=== PATIENT | male | born 1950 | race Two or more races ===

== ENCOUNTER 2018-10-24 13:30 | Emergency (ER) | payer OTHER ==
[~2018-10-24] VITALS: Ht 177.8 cm; Wt 114.3 kg
[2018-10-24 14:02] VITALS: BP 124/73
[2018-10-24] MEDS: LIDOCAINE 1% HCL (LOCAL ANESTH.) INJ 20ML MDV IJ ONE (14:57)
[2018-10-24] MEDS: TETANUS-DIPTH-ACEL PERTUSSIS 0.5ML SYRG IM ONE (14:59)
== END 2018-10-24 15:12 | disposition home or self-care (01) ==
LOC: ER 13:30
DX: S61.412A Laceration without foreign body of left hand, initial encounter (principal); I10 Essential (primary) hypertension; W26.8XXA Contact with other sharp object(s), not elsewhere classified, initial encounter; Y93.89 Activity, other specified; Y92.89 Other specified places as the place of occurrence of the external cause; Y99.8 Other external cause status
CPT/HCPCS: 12002; 90471; 90715; 99283; J2001

== ENCOUNTER 2018-10-27 12:08 | Emergency (ER) | payer OTHER ==
[~2018-10-27] VITALS: Ht 177.8 cm; Wt 114.3 kg
[2018-10-27 12:26] VITALS: BP 139/94
== END 2018-10-27 13:11 | disposition home or self-care (01) ==
LOC: ER 12:11
DX: S61.412D Laceration without foreign body of left hand, subsequent encounter (principal); I10 Essential (primary) hypertension; X58.XXXD Exposure to other specified factors, subsequent encounter

== ENCOUNTER 2018-11-03 10:31 | Emergency (ER) | payer OTHER ==
[~2018-11-03] VITALS: Ht 177.8 cm; Wt 114.3 kg
[2018-11-03 10:47] VITALS: BP 111/68
== END 2018-11-03 11:04 | disposition home or self-care (01) ==
LOC: ER 10:33
DX: S61.412D Laceration without foreign body of left hand, subsequent encounter (principal); I10 Essential (primary) hypertension; X58.XXXD Exposure to other specified factors, subsequent encounter